=== PATIENT | male | born 1965 | race Hispanic/Latino ===

== ENCOUNTER → 2023-12-30 | Outpatient (CLI) | payer BC | END | disposition home or self-care (01) | LOC: SHCH 09:20 | PROVIDERS: ATTEND Student in an Organized Health Care Education/Training Program | DX: R07.9 Chest pain, unspecified (principal) | CPT/HCPCS: 93306; 93356 ==

== ENCOUNTER → 2024-02-24 | Outpatient (CLI) | payer BC ==
--- NOTE | 2024-02-25 11:58 | HMCSR ---
APPROVED REPORT Bilateral Lower Extremity Venous Study for Venous Competence., DVT. Indications Pulmonary Embolism , i87.1,i87.2 Vein Imaging CFV (R): Normal flow, augmentation and compression. No evidence of DVT. 14.5mm 1739ms of reflux. SFJ (R): Normal flow, augmentation and compression. No evidence of DVT. FEM (R): Normal flow, augmentation and compression. No evidence of DVT. POP (R): Normal flow, augmentation and compression. No evidence of DVT. DFV (R): Normal flow, augmentation and compression. No evidence of DVT. PTV (R): Normal flow, augmentation and compression. No evidence of DVT. Peroneals (R): Normal flow, augmentation and compression. No evidence of DVT. CFV (L): Normal flow, augmentation and compression. No evidence of DVT. 15.1mm 2117ms of reflux. SFJ (L): Normal flow, augmentation and compression. No evidence of DVT. FEM (L): Normal flow, augmentation and compression. No evidence of DVT. POP (L): Normal flow, augmentation and compression. No evidence of DVT. DFV (L): Normal flow, augmentation and compression. No evidence of DVT. PTV (L): Normal flow, augmentation and compression. No evidence of DVT. Peroneals (L): Normal flow, augmentation and compression. No evidence of DVT. Technologist Impression RGSV junction 8.2mm 878ms thigh 4.4mm 0.0ms knee 3.8mm 4339ms calf 4.2mm 0.0ms RSSV prox 3.0mm 0.0ms mid 2.2mm 0.0ms LGSV junction 7.6mm 0.0ms thigh 4.1mm 922ms knee 3.5mm 0.0ms calf 3.6mm 0.0ms LSSV prox 2.5mm 1367ms mid 3.1mm 0.0ms Conclusion Deep veins of the bilateral lower extremities appear patent and compressible without thrombus. Deep venous relfux noted in the RCFV and LCFV. Superficial venous insufficiency noted in the RGSV, LGSV and LSSV. Conclusion Deep veins of the bilateral lower extremities appear patent and compressible without thrombus. Deep venous relfux noted in the RCFV and LCFV. Superficial venous insufficiency noted in the RGSV, LGSV and LSSV.
--- NOTE | 2024-02-25 11:59 | HMCSR ---
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 (R) 46.3cm/sec, Triphasic, Prof Fem Art. (L) 74.1cm/sec, Triphasic, Fem Art Prox. (R) 92.6cm/sec, Triphasic, Fem Art Prox. (L) 106.5cm/sec, Triphasic, Fem Art Mid. (R) 101.9cm/sec, Triphasic, Fem Art Mid. (L) 98.4cm/sec, Triphasic, Fem Art Dist (R) 122.7cm/sec, Triphasic, Fem Art Dist. (L) 62.8cm/sec, Triphasic, Pop Art(AK) (R) 89.1cm/sec, Triphasic, Pop Art (AK) (L) 77.2cm/sec, Triphasic, Pop Art (Fossa)(R) 66.0cm/sec, Triphasic, Pop Art (Fossa) (L) 62.8cm/sec, Triphasic, Pop Art(BK) (R) 78.7cm/sec, Triphasic, Pop Art (BK) (L) 52.9cm/sec, Triphasic, CLINICAL CYTOGENETICS DIRECTOR Prox. (R) 85.7cm/sec, Triphasic, CLINICAL CYTOGENETICS DIRECTOR Prox. (L) 77.2cm/sec, Triphasic, CLINICAL CYTOGENETICS DIRECTOR Mid. (R) 110.0cm/sec, Triphasic, CLINICAL CYTOGENETICS DIRECTOR Mid. (L) 106.0cm/sec, Triphasic, CLINICAL CYTOGENETICS DIRECTOR Dist. (R) 79.9cm/sec, Triphasic, CLINICAL CYTOGENETICS DIRECTOR Dist. (L) 106.0cm/sec, Triphasic, Per Art Prox. (R) 44.2cm/sec, Triphasic, Per Art Prox. (L) 35.9cm/sec, Biphasic, Per Art Mid. (R) 75.9cm/sec, Triphasic, Per Art Mid. (L) 46.9cm/sec, Biphasic, Per Art Dist. (R) 47.7cm/sec, Biphasic, Per Art Dist. (L) 49.0cm/sec, Biphasic, SALVADOR Prox. (R) 72.7cm/sec, Triphasic, SALVADOR Prox. (L) 90.3cm/sec, Triphasic, SALVADOR Mid. (R) 86.1cm/sec, Triphasic SALVADOR Mid. (L) 97.2cm/sec, Triphasic, SALVADOR Dist. (R) 92.4cm/sec, Triphasic, SALVADOR Dist. (L) 91.5cm/sec, Triphasic, Technologist Impression No evidence of significant arterial insufficiency of bilateral lower extremities. Conclusion No hemodynamically significant lower extremity PAD noted. Conclusion No hemodynamically significant lower extremity PAD noted.
== END | disposition home or self-care (01) ==
LOC: SHCH 12:35
PROVIDERS: ATTEND Student in an Organized Health Care Education/Training Program
DX: I87.1 Compression of vein (principal); I87.2 Venous insufficiency (chronic) (peripheral)
CPT/HCPCS: 93925; 93970